=== PATIENT | male | born 1990 | race Caucasian/White ===

== ENCOUNTER 2017-12-20 11:28 | Emergency (ER) | payer OTHER ==
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
[2017-12-20] MEDS ORDERED: fentaNYL 100 MCG/2 ML INJ IVP ONE (12:28)
[2017-12-20] MEDS ORDERED: fentaNYL 100 MCG/2 ML INJ ONE (12:29)
[2017-12-20] MEDS ORDERED: IBUPROFEN 800 MG TAB PO ONE (14:10)
[2017-12-20] MEDS ORDERED: OXYCODONE/APAP 5/325 TAB PO ONE (14:10)
[2017-12-20 14:29] VITALS: BP 127/100
== END 2017-12-20 14:26 | disposition home or self-care (01) ==
PROC: 0PSJXZZ Reposition Left Radius, External Approach (ICD-10-PCS; principal; 2017-12-20)
DX: S52.572A Other intraarticular fracture of lower end of left radius, initial encounter for closed fracture (principal); S52.612A Displaced fracture of left ulna styloid process, initial encounter for closed fracture; S29.9XXA Unspecified injury of thorax, initial encounter; V18.0XXA Pedal cycle driver injured in noncollision transport accident in nontraffic accident, initial encounter; Y92.410 Unspecified street and highway as the place of occurrence of the external cause; Y99.8 Other external cause status; Y93.55 Activity, bike riding
CPT/HCPCS: 96374; A4565; J3010; L3908